=== PATIENT | female | born 1935 | race Hispanic/Latino ===

== ENCOUNTER → 2017-05-07 | Outpatient (CLI) | payer MEDICARE ==
[~2017-05-07] MED LIST: ACETAMINOP325 MG/10 PO; AMLODIPINE BESYL5 MG PO; CALCIUM 500+D1 EACH PO; CALCIUM CARBON500 MG PO; DIOVAN HCT 3201 EAC1 PO; DOXAZOSIN MESYLA2 MG PO; FLAVOXATE HCL100 MG PO; HUMULIN 70-30 V10 ML; LOVASTATIN40 MG PO; OXYBUTYNIN CHLOR5 MG PO; QUETIAPINE FUMA25 MG PO; TYLENOL WITH C1 EACH PO; ULTRAM50 MG PO; Z.0.AMARYL4 MG; Z.0.CELEXA20 MG; Z.0.PEPCID40 MG; Z.0.VYTORIN 10-401 E; Z.1.DIOVAN HCT 1601
--- NOTE | 2017-05-07 13:11 | Diagnostic Imaging Report ---
PROCEDURE:X-RAY ABDOMEN - KUB COMPARISON:Abdomen x-ray 05/15/13. INDICATIONS:CALCULUS OF KIDNEY FINDINGS: There is a non-obstructed bowel-gas pattern. The right renal shadow is lobulated in contour suggestive of atrophy or scarring. Morphology is similar to previous exam. There are 3 calculi over the lower pole shadow measuring up to 15 mm. Calcifications overlying the left renal shadow. No calcifications along expected course of the ureters. No calcifications in the pelvis. There are degenerative changes of the spine consistent with age. No focal osseous abnormalities. The lung bases are clear. CONCLUSION: Three right intrarenal calculi. Dictated by: Ange Marks M.D. on 05/07/2017 at 13:18 Electronically approved by: Ange Marks M.D. on 05/07/2017 at 13:18
--- NOTE | 2017-05-07 13:53 | Diagnostic Imaging Report ---
PROCEDURE:US RETROPERITONEAL ( KIDNEY ). COMPARISON:Renal ultrasound 09/27/12 INDICATIONS:CALCULUS OF KIDNEY TECHNIQUE: Arreguin-scale and color sonographic images of the bilateral kidneys and bladder where obtained in transverse and longitudinal planes. FINDINGS: RIGHT KIDNEY: 14.1 cm in length and is stable. The cortex is diminutive. Cysts: A cyst in the lower pole measures 20 x 25 x 37 mm. Previously, 15 x 16 x 25 mm. A cyst in the interpolar cortex measures 10 x 12 x 20 mm. Solid masses: None Stones: None Hydronephrosis: None Echogenicity: Mildly increased LEFT KIDNEY: 17 cm in length. This is likely artifactual. Previously, the left kidney measures 14 cm in length. The cortex is diminutive. Cysts: Cyst in the interpolar region measures 15 x 16 x 18 mm. Upper pole cyst measures 21 x 31 x 42 cm. Previously, the cyst measured 21 x 30 x 28 mm. Solid masses: None Stones: None Hydronephrosis: None Echogenicity: Mildly increased Bladder: Well-distended. A right renal jet is visible. The left renal jet is not visualized. CONCLUSION: 1. Atrophic kidneys with increased renal echotexture suggestive of chronic medical renal disease. 2. No evidence of renal calculus. 3. Bilateral renal cysts as described above. Dictated by: Ange Marks M.D. on 05/07/2017 at 14:01 Electronically approved by: Ange Marks M.D. on 05/07/2017 at 14:01
== END ==
LOC: RAD 10:35
PROVIDERS: ATTEND Urology
DX: N20.0 Calculus of kidney (principal); N13.30 Unspecified hydronephrosis
CPT/HCPCS: 74000; 76770

== ENCOUNTER 2017-09-01 16:31 | Inpatient (IN) | payer MEDICARE, OTHER ==
--- OUTSIDE RECORDS SUMMARY | 2017-09-01 16:35 | XMS REPORT ---
Author Author [facility] Address Unknown Phone Unavailable Care Team Providers Care Foreign Language Interpreter Name Role Phone JOHNATHAN MEANS Unavailable Unavailable Problems This patient has no known problems. Allergies, Adverse Reactions, Alerts This patient has no known allergies or adverse reactions. Medications This patient has no known medications. Results Test Description Test Time Test Comments Text Results Atomic Results Result Comments US RENAL RETROPERITONEAL COMP [place] [address] Patient Name: KATERINA KEY MR #: [id number] : 1935 Age/Sex: 82/F Req #: [id number] Adm Physician: Ordered by: JOHNATHAN MEANS MD Report #: [id number] Location: [facility] Room/Bed: Procedure: [id number] US/US RENAL RETROPERITONEAL COMP Exam Date: 05/07/17 Exam Time: 1142 REPORT STATUS: Signed PROCEDURE : US RETROPERITONEAL ( KIDNEY ). COMPARISON: Renal ultrasound 09/27/12 INDICATIONS: CALCULUS OF KIDNEY TECHNIQUE: Arreguin-scale and color sonographic images of the bilateral kidneys and bladder where obtained in transverse and longitudinal planes. FINDINGS: RIGHT KIDNEY: 14.1 cm in length and is stable. The cortex is diminutive. Cysts: A cyst in the lower pole measures 20 x 25 x 37 mm. Previously, 15 x 16 x 25 mm. A cyst in the interpolar cortex measures 10 x 12 x 20 mm. Solid masses: None Stones: None Hydronephrosis: None Echogenicity: Mildly increased LEFT KIDNEY: 17 cm in length. This is likely artifactual. Previously, the left kidney measures 14 cm in length. The cortex is diminutive. Cysts: Cyst in the interpolar region measures 15 x 16 x 18 mm. Upper pole cyst measures 21 x 31 x 42 cm. Previously, the cyst measured 21 x 30 x 28 mm. Solid masses: None Stones: None Hydronephrosis: None Echogenicity: Mildly increased Bladder: Well-distended. A right renal jet is visible. The left renal jet is not visualized. CONCLUSION: 1. Atrophic kidneys with increased renal echotexture suggestive of chronic medical renal disease. 2. No evidence of renal calculus. 3. Bilateral renal cysts as described above. Dictated by: Doris Marks M.D. on 05/07/2017 at 14:01 Electronically approved by: Doris Marks M.D. on 05/07/2017 at 14:01 Dictated By: DORIS MARKS MD 1401 Transcribed By: MORGAN on 05/07/17 1401 COPY TO: JOHNATHAN MEANS MD ABDOMEN-1VIEW (KUB) [place] [address] Patient Name: KATERINA KEY MR #: [id number] : 1935 Age/Sex: 82/F Req #: [id number] Adm Physician: Ordered by: JOHNATHAN MEANS MD Report #: [id number] Location: [facility] Room/Bed: Procedure: [id number] DX/ABDOMEN-1VIEW (KUB) Exam Date: 05/07/17 Exam Time: 1100 REPORT STATUS: Signed PROCEDURE: X-RAY ABDOMEN - KUB COMPARISON: Abdomen x-ray 05/15/13. INDICATIONS: CALCULUS OF KIDNEY FINDINGS: There is a non-obstructed bowel-gas pattern. The right renal shadow is lobulated in contour suggestive of atrophy or scarring. Morphology is similar to previous exam. There are 3 calculi over the lower pole shadow measuring up to 15 mm. Calcifications overlying the left renal shadow. No calcifications along expected course of the ureters. No calcifications in the pelvis. There are degenerative changes of the spine consistent with age. No focal osseous abnormalities. The lung bases are clear. CONCLUSION: Three right intrarenal calculi. Dictated by: Doris Marks M.D. on 05/07/2017 at 13:18 Electronically approved by: Doris Marks M.D. on 05/07/2017 at 13:18 Dictated By: DORIS MARKS MD 1318 Transcribed By: MORGAN on 05/07 1318 COPY TO: JOHNATHAN MEANS MD
[2017-09-01] MEDS ORDERED: ACETAMINOPHEN 325 MG TAB PO ONE (17:15)
[2017-09-01] MEDS ORDERED: SODIUM CHLORIDE 0.9% 1000ML 1,000 ML IV STA ×2 (17:24→18:19)
[2017-09-01] MEDS ORDERED: DIATRIZOATE MEGL/DIATRIZOA SOD 30 ML BTL PO ONE (17:26)
[2017-09-01 17:52] LABS: BASOPHILS % 0.1 % (0.0-1.0); EOSINOPHILS # (AUTO) 0.6 (0.0-0.4); EOSINOPHILS % 5.5 % (0.0-6.0); HEMATOCRIT 33.6 % (34.2-44.1); HEMOGLOBIN 11.2 g/dL (12.0-16.0); LYMPHOCYTES # (AUTO) 0.2 (1.0-3.2); LYMPHOCYTES % 1.6 % (18.0-39.1); MEAN CORPUSCULAR HEMOGLOBIN 29.1 pg (28-32); MEAN CORPUSCULAR HGB CONC 33.3 g/dL (31-35); MEAN CORPUSCULAR VOLUME 87.3 fL (81-99); MONOCYTES # (AUTO) 0.2 (0.2-0.8); MONOCYTES % 2.2 % (4.4-11.3); NEUTROPHILS # (AUTO) 9.9 (2.1-6.9); NEUTROPHILS % 90.1 % (38.7-80.0); PLATELET COUNT 183 x10e3/uL (140-360); RED BLOOD COUNT 3.85 x10e6/uL (3.6-5.1); RED CELL DISTRIBUTION WIDTH 12.8 % (11.7-14.4)
[2017-09-01 18:07] LABS: ALBUMIN 2.8 g/dL (3.5-5.0); ALBUMIN/GLOBULIN RATIO 0.8 (0.8-2.0); ANION GAP 15.8 mmol/L (8-16); CALCIUM 8.8 mg/dL (8.4-10.2); CREATININE, SERUM 2.78 mg/dL (0.57-1.11); POTASSIUM 3.8 mmol/L (3.5-5.1)
[2017-09-01 18:35] LABS: BILIRUBIN,URINE 1+ (NEGATIVE); CLARITY,URINE SL CLOUDY (CLEAR); COLOR,URINE ORANGE (YELLOW); KETONES,URINE NEGATIVE (NEGATIVE); LEUKOCYTE ESTERASE ,URINE NEGATIVE (NEGATIVE); NITRITE,URINE POSITIVE (NEGATIVE); PROTEIN,URINE DIPSTICK 1+ (NEGATIVE); URINE UROBILINOGEN 1 mg/dL (0.2 - 1)
[2017-09-01 18:39] LABS: AMORPHOUS SEDIMENT,URINE MODERATE (FEW); BACTERIA,URINE MANY /HPF; EPITHELIAL CELLS,URINE FEW /LPF; MUCUS,URINE FEW (RARE); RBC,URINE 0-5 /HPF (0-5)
--- NOTE | 2017-09-01 19:00 | Diagnostic Imaging Report ---
PROCEDURE: CHEST SINGLE (PORTABLE) COMPARISON: Patients [facility], DX, CHEST 2 VIEWS, 04/02/2016, 15:40. INDICATIONS: VOMITING, URINARY TRACT INFECTION FINDINGS: LUNGS: The lungs are diffusely hyperinflated, similar to previous exam. No evidence of mass. No interstitial thickening or infiltrate. PLEURA: No effusions or pneumothorax. HEART \T\ MEDIASTINUM: Stable cardiomegaly. The pulmonary vascular markings are normal. BONES \T\ SOFT TISSUES: Degenerative changes of the right shoulder are stable. No focal osseous lesions. CONCLUSION: Stable cardiomegaly. No vascular congestion. No acute pulmonary process. Dictated by: Ange Marks M.D. on 09/01/2017 at 19:02 Electronically approved by: Ange Marks M.D. on 09/01/2017 at 19:02
--- NOTE | 2017-09-01 19:18 | Diagnostic Imaging Report ---
PROCEDURE: CT ABDOMEN AND PELVIS WITHOUT CONTRAST COMPARISON:[facility], CT, CT ABDOMEN/PELVIS WO, 06/08/2012, 9:52. [facility], US, US RETROPERITONEAL ( KIDNEY )., 05/07/2017, 11:42. [facility], CT, CT ABDOMEN AND PELVIS WITHOUT CONTRAST, 12/25/2009, 22:01. INDICATIONS:LOWER ABD PAIN TECHNIQUE: Axial CT images through the abdomen and pelvis were obtained without intravenous contrast. Coronal and sagittal reformations were created. FINDINGS: Right kidney: The atrophic. There are multiple renal cysts measuring up to 4 cm. One cyst in the interpolar region measures 2.5 cm (previously, 1.3 cm). The renal pelvis is patulous. There is a 6 mm calculus in the interpolar region at the superior aspect of the cyst mentioned above. This calcification is stable in position. No significant perinephric inflammation. Left kidney: Atrophic. There are multiple low-attenuation cortical lesion suggestive of cysts. The largest is in the lower pole and measures 3 cm. The renal pelvis is mildly patulous. No calyceal dilatation. No intrarenal calculi Bladder/ureters: No ureteral calculus. The left ureter is mildly distended throughout its course. No significant periureteric inflammation. The bladder is collapsed around a Marrufo catheter. The tim are thickened. There is a trace amount of perivesicular inflammation. Liver: Normal attenuation. No mass Spleen: Normal attenuation. No mass Biliary: Present and contains a tiny amount of sludge near the neck. No biliary ductal dilatation Pancreas: Mild fatty atrophy. The parenchyma is somewhat dense and the proximal tail (axial image 25) without associated ductal dilatation. The distal pancreas tail is atrophic. Underlying mass cannot be entirely excluded. Adrenal Glands: No mass Vasculature: Diffuse calcifications of the aorta without aneurysmal dilatation GI: Enteric contrast present throughout. No evidence of small or large bowel dilatation or mural thickening. Diverticulosis of the sigmoid colon is present without associated inflammation. The appendix is not visualized and may be absent. Peritoneum/Retroperitoneum: No loculated fluid collections. No evidence of lymphadenopathy. Reproductive organs: The uterus is absent. There are no adnexal masses. MSK: Degenerative changes of the lower thoracic spine without compression deformity. Degenerative changes of the pubic symphysis are stable. No listhesis. No lytic or blastic lesions. Lung bases: There are prominent pericardial fat pads. There is subpleural fat deposition of the lung bases, left lung more severe than the right. There is microatelectasis of the lung bases, left more severe than the right. CONCLUSION: 1. Diffuse bladder wall thickening and mild perivesicular inflammation suggestive of cystitis. 2. Calcification in the interpolar region of the right kidney is stable in position. No hydroureteronephrosis. 3. Bilateral renal cysts. One cyst in the right kidney is larger. 4. Diverticulosis coli. No bowel obstruction or inflammation. Nonvisualization of the appendix. 5. Nonspecific focal thickening of the proximal pancreas tail without ductal dilatation. Recommend 12 month follow-up to confirm stability. 6. Minimal burden of cholelithiasis. Dictated by: Ange Marks M.D. on 09/01/2017 at 19:19 Electronically approved by: Ange Marks M.D. on 09/01/2017 at 19:19
[2017-09-01] MEDS: CEFTRIAXONE SOD 1 GM VIAL IV SCH (19:19)
[2017-09-01] MEDS: SODIUM CHLORIDE 0.9% 1000ML 1,000 ML IV SCH (19:29)
[2017-09-01 20:25] LABS: BAND NEUTROPHILS % (MANUAL) 7 %; EOSINOPHILS % (MANUAL) 4 % (0-7); LYMPHOCYTES % (MANUAL) 1 % (19-48); MONOCYTES % (MANUAL) 2 % (3.4-9.0); NEUTROPHILS % (MANUAL) 86 % (40-74)
[2017-09-01 20:27] LABS: PLATELET ESTIMATE ADEQUATE; PLATELET MORPHOLOGY COMMENT FEW LARGE; RBC MORPHOLOGY COMMENT NORMAL
[2017-09-01] MEDS ORDERED: ONDANSETRON HCL INJ 2 MG/ML VIAL IV PRN (21:45)
[2017-09-01] MEDS ORDERED: ONDANSETRON HCL 4 MG ORAL DISINTEGRATING TAB PO PRN (21:45)
[2017-09-01 21:46] VITALS: BP 120/52
[2017-09-01 23:09] VITALS: BP 120/52
[2017-09-02] VITALS (7 sets, daily range): BP systolic 100–129; BP diastolic 39–50
[2017-09-02] MEDS: ACETAMINOPHEN 325 MG TAB PO PRN ×3 (04:21→22:05)
[2017-09-02] MEDS: CEFTRIAXONE SOD 1 GM VIAL IV SCH ×2 (06:07→19:52)
[2017-09-02 06:09] LABS: BASOPHILS % 0.1 % (0.0-1.0); EOSINOPHILS # (AUTO) 0.7 (0.0-0.4); EOSINOPHILS % 7.4 % (0.0-6.0); HEMATOCRIT 30.6 % (34.2-44.1); HEMOGLOBIN 10.2 g/dL (12.0-16.0); LYMPHOCYTES # (AUTO) 0.2 (1.0-3.2); MEAN CORPUSCULAR HEMOGLOBIN 29.7 pg (28-32); MEAN CORPUSCULAR HGB CONC 33.3 g/dL (31-35); MONOCYTES # (AUTO) 0.2 (0.2-0.8); NEUTROPHILS % 87.9 % (38.7-80.0); PLATELET COUNT 159 x10e3/uL (140-360); RED BLOOD COUNT 3.44 x10e6/uL (3.6-5.1); RED CELL DISTRIBUTION WIDTH 13.1 % (11.7-14.4)
[2017-09-02 06:39] LABS: ALBUMIN 2.5 g/dL (3.5-5.0); ANION GAP 14.8 mmol/L (8-16); CALCIUM 7.6 mg/dL (8.4-10.2); CREATININE, SERUM 2.56 mg/dL (0.57-1.11); POTASSIUM 3.8 mmol/L (3.5-5.1)
--- NOTE | 2017-09-02 07:38 | History and Physical ---
PRIMARY CARE PHYSICIAN: Dr. Tucker UROLOGIST: Dr. Frank CHIEF COMPLAINT: Fever and flank pain. HISTORY OF PRESENT ILLNESS: An 82-year-old woman with a history of chronic hydronephrosis and bilateral nephrolithiasis, now developing fever at home with bilateral flank pain. Primary care doctor sent her to the hospital for management. Here she was found to be in severe sepsis and found to have pyelonephritis. She is admitted for further evaluation and management. PAST MEDICAL HISTORY: Chronic hydronephrosis, bilateral nephrolithiasis, hypertension, obesity, diabetes mellitus, type 2, depression, chronic kidney disease, stage 3, gout, anemia. PAST SURGICAL HISTORY: Urinary stent placement, status post removal at patient's request. ALLERGIES: PER ELECTRONIC MEDICAL RECORD. FAMILY HISTORY/SOCIAL HISTORY: Patient is . She has 5 children. No alcohol, illicits or cigarettes. MEDICATIONS: Per electronic medical record. REVIEW OF SYSTEMS: Denies any chest pain or shortness of breath. PHYSICAL EXAMINATION VITAL SIGNS: Have been reviewed. Temperature as high as 101.7, blood pressure as low as 100/46 and heart rate of 107. GENERAL: A tired-appearing woman resting in bed. HEENT: Anicteric. Pupils respond to light. No oral lesions. CARDIOVASCULAR: Normal S1 and S2. LUNGS: Moderate breath sounds. ABDOMEN: Soft. Large abdomen but nontender. She has bilateral flank tenderness. EXTREMITIES: No edema. SKIN: Dry. PSYCHIATRIC: Flat affect. LABS: Reviewed. MEDICATIONS: Reviewed. ASSESSMENT AND PLAN: This is an 82-year-old woman: 1. Acute pyelonephritis: Will continue with antibiotics and follow up cultures. 2. Severe sepsis: Antibiotics and intravenous fluids. 3. Acute kidney injury in the setting of chronic kidney disease, stage 3: Continue with intravenous fluids and reassess. 4. Hyperlipidemia: Continue statin. 5. Hyponatremia: Rehydrate and reassess. 6. Diabetes mellitus, type 2: Obtain hemoglobin A1c and lipid panel. 7. Flank pain: P.r.n. pain medications. 8. Obesity: Obtain lipid panel and hemoglobin A1c. 9. Prophylaxis: Sequential compression devices and proton pump inhibitor. 10. Disposition: Monitor closely. Follow up cultures. Job#: [id number] [place]
[2017-09-02 08:06] LABS: CHOL/HDL RATIO 5.2 (3.0-3.6)
[2017-09-02] MEDS: SODIUM CHLORIDE 0.9% 1000ML 1,000 ML IV SCH ×2 (08:20→22:23)
[2017-09-02] MEDS: PANTOPRAZOLE 40 MG 10ML VIAL IV SCH (08:25)
[2017-09-02] MEDS: QUETIAPINE FUMARATE 25 MG TAB PO SCH (08:25)
[2017-09-02] MEDS: OXYBUTYNIN CHLORIDE 5 MG TAB PO SCH (08:25)
[2017-09-02] MEDS ORDERED: SIMVASTATIN 20 MG TAB PO SCH (09:00)
[2017-09-02] MEDS ORDERED: DEXTROSE 50% SYRINGE 50 ML IV PRN (14:45)
[2017-09-02] MEDS ORDERED: INSULIN REGULAR, HUMAN 100 UNIT/1 ML 3ML VIAL SQ SCH (16:30)
[2017-09-02] MEDS: INSULIN REGULAR, HUMAN 100 UNIT/1 ML 3ML VIAL SQ SCH ×2 (16:50→22:15)
[2017-09-02] MEDS: SIMVASTATIN 40 MG TAB PO SCH (22:00)
[2017-09-03] VITALS (9 sets, daily range): BP systolic 97–129; BP diastolic 42–53
[2017-09-03] MEDS ORDERED: SODIUM CHLORIDE 0.9% 500ML 500 ML IV ONE (07:15)
[2017-09-03 07:20] LABS: BASOPHILS % 0.1 % (0.0-1.0); EOSINOPHILS # (AUTO) 0.6 (0.0-0.4); EOSINOPHILS % 7.4 % (0.0-6.0); HEMATOCRIT 29.6 % (34.2-44.1); HEMOGLOBIN 9.7 g/dL (12.0-16.0); LYMPHOCYTES # (AUTO) 0.5 (1.0-3.2); LYMPHOCYTES % 6.1 % (18.0-39.1); MEAN CORPUSCULAR HEMOGLOBIN 29.1 pg (28-32); MEAN CORPUSCULAR HGB CONC 32.8 g/dL (31-35); MEAN CORPUSCULAR VOLUME 88.9 fL (81-99); MONOCYTES # (AUTO) 0.3 (0.2-0.8); MONOCYTES % 4.2 % (4.4-11.3); NEUTROPHILS # (AUTO) 6.4 (2.1-6.9); NEUTROPHILS % 81.6 % (38.7-80.0); PLATELET COUNT 162 x10e3/uL (140-360); RED BLOOD COUNT 3.33 x10e6/uL (3.6-5.1); RED CELL DISTRIBUTION WIDTH 13.2 % (11.7-14.4)
[2017-09-03] MEDS: CEFTRIAXONE SOD 1 GM VIAL IV SCH ×2 (07:26→20:32)
[2017-09-03] MEDS: TRAMADOL HCL 50 MG TAB PO PRN ×2 (07:30→20:48)
--- NOTE | 2017-09-03 07:31 | Progress Note ---
DATE: September 03, 2017 TIME: 7:02 a.m. OVERNIGHT: Feeling a little better. REVIEW OF SYSTEMS: Denies any dizziness or chest pain. PHYSICAL EXAMINATION VITAL SIGNS: Reviewed. GENERAL: A tired-appearing woman resting in bed. HEENT: Anicteric. Pupils respond to light. CARDIOVASCULAR: Normal S1 and S2. LUNGS: Moderate breath sounds. ABDOMEN: Soft and nontender. Flanks are mildly tender. EXTREMITIES: No edema. SKIN: Dry. PSYCHIATRIC: Normal affect. : She has a Marrufo in place. LABS: Reviewed. MEDICATIONS: Reviewed. ASSESSMENT AND PLAN: This is an 82-year-old woman with: 1. Acute pyelonephritis: Will continue intravenous antibiotics. 2. Severe sepsis: Continue antibiotics. Give bolus fluids. 3. Hypertension: Bolus fluids now. 4. Hyperlipidemia: Continue statin. 5. Hyponatremia: Reassess and continue rehydration. Improving. Yesterday, sodium was 133. 6. Diabetes mellitus, type 2: Follow up hemoglobin A1c and lipid panel. Hemoglobin A1c is 9.5, LDL is 43 and triglycerides 198. 7. Flank pain: Improving. 8. Obesity: Follow up hemoglobin A1c and lipid panel. 9. Prophylaxis: Continue sequential compression devices and proton pump inhibitor. 10. Disposition: Discontinue Marrufo. Continue intravenous antibiotics. Give bolus of fluids now for hypertension in the setting of sepsis. Leukocytosis is resolving. Job#: [id number] [place]
[2017-09-03 07:40] LABS: CALCIUM 7.2 mg/dL (8.4-10.2); CREATININE, SERUM 3.04 mg/dL (0.57-1.11)
[2017-09-03 08:25] LABS: BAND NEUTROPHILS % (MANUAL) 2 %; EOSINOPHILS % (MANUAL) 7 % (0-7); LYMPHOCYTES % (MANUAL) 5 % (19-48); MYELOCYTES % (MANUAL) 1 % (0-0); NEUTROPHILS % (MANUAL) 84 % (40-74); PLATELET ESTIMATE ADEQUATE; PLATELET MORPHOLOGY COMMENT FEW LARGE; POIKILOCYTOSIS SLIGHT; PROMYELOCYTES % (MANUAL) 1 % (0-0); RBC MORPHOLOGY COMMENT NORMAL
[2017-09-03] MEDS: INSULIN REGULAR, HUMAN 100 UNIT/1 ML 3ML VIAL SQ SCH ×4 (08:30→22:23)
[2017-09-03] MEDS: QUETIAPINE FUMARATE 25 MG TAB PO SCH (09:22)
[2017-09-03] MEDS: OXYBUTYNIN CHLORIDE 5 MG TAB PO SCH (09:22)
[2017-09-03] MEDS: PANTOPRAZOLE 40 MG 10ML VIAL IV SCH (09:22)
[2017-09-03] MEDS: MORPHINE SULFATE 2 MG/ML SYR IV PRN ×2 (10:40→15:56)
[2017-09-03] MEDS: SODIUM CHLORIDE 0.9% 1000ML 1,000 ML IV SCH (10:53)
[2017-09-03] MEDS: ACETAMINOPHEN 325 MG TAB PO PRN (20:48)
[2017-09-03] MEDS: SIMVASTATIN 40 MG TAB PO SCH (22:22)
[2017-09-04] VITALS: BP 100/38
[2017-09-04] MEDS: SODIUM CHLORIDE 0.9% 1000ML 1,000 ML IV SCH (00:24)
[2017-09-04 04:00] VITALS: BP 98/45
[2017-09-04] MEDS: INSULIN REGULAR, HUMAN 100 UNIT/1 ML 3ML VIAL SQ SCH ×4 (07:30→21:15)
[2017-09-04] MEDS ORDERED: SODIUM BICARBONATE 8.4% IV SCH ×2 (07:45)
[2017-09-04] MEDS ORDERED: SODIUM CHLORIDE 0.45% IV SCH ×2 (07:45)
[2017-09-04 09:08] LABS: BASOPHILS % 0.1 % (0.0-1.0); EOSINOPHILS # (AUTO) 0.7 (0.0-0.4); EOSINOPHILS % 8.8 % (0.0-6.0); HEMATOCRIT 29.8 % (34.2-44.1); HEMOGLOBIN 9.5 g/dL (12.0-16.0); LYMPHOCYTES # (AUTO) 0.8 (1.0-3.2); LYMPHOCYTES % 10.1 % (18.0-39.1); MEAN CORPUSCULAR HEMOGLOBIN 28.9 pg (28-32); MEAN CORPUSCULAR HGB CONC 31.9 g/dL (31-35); MEAN CORPUSCULAR VOLUME 90.6 fL (81-99); MONOCYTES # (AUTO) 0.5 (0.2-0.8); MONOCYTES % 6.7 % (4.4-11.3); NEUTROPHILS % 73.6 % (38.7-80.0); PLATELET COUNT 177 x10e3/uL (140-360); RED BLOOD COUNT 3.29 x10e6/uL (3.6-5.1); RED CELL DISTRIBUTION WIDTH 13.4 % (11.7-14.4)
[2017-09-04 09:16] LABS: ANION GAP 12.1 mmol/L (8-16); CREATININE, SERUM 3.24 mg/dL (0.57-1.11); POTASSIUM 4.1 mmol/L (3.5-5.1)
[2017-09-04 09:19] LABS: CALCIUM 6.8 mg/dL (8.4-10.2)
[2017-09-04 09:40] LABS: BAND NEUTROPHILS % (MANUAL) 1 %; EOSINOPHILS % (MANUAL) 11 % (0-7); LYMPHOCYTES % (MANUAL) 6 % (19-48); MONOCYTES % (MANUAL) 1 % (3.4-9.0); NEUTROPHILS % (MANUAL) 81 % (40-74); PLATELET ESTIMATE ADEQUATE; PLATELET MORPHOLOGY COMMENT NORMAL; RBC MORPHOLOGY COMMENT NORMAL
[2017-09-04] MEDS ORDERED: SODIUM BICARBONATE 8.4% 50 ML in SODIUM CHLORIDE 0.45% 1,000 ML IV SCH (11:00)
[2017-09-04] MEDS: QUETIAPINE FUMARATE 25 MG TAB PO SCH (11:16)
[2017-09-04] MEDS: PANTOPRAZOLE 40 MG 10ML VIAL IV SCH (11:16)
[2017-09-04] MEDS: CEFTRIAXONE SOD 1 GM VIAL IV SCH (11:16)
[2017-09-04] MEDS: OXYBUTYNIN CHLORIDE 5 MG TAB PO SCH (11:16)
[2017-09-04] MEDS ORDERED: FUROSEMIDE INJ 10 MG/ML 2 ML VIAL IV ONE (12:00)
[2017-09-04] MEDS ORDERED: CALCIUM GLUCONATE 10% INJ 9.3 MEQ in SODIUM CHLORIDE 0.9% 100 ML 100 ML IV ONE (13:15)
[2017-09-04] MEDS ORDERED: CALCIUM CHLORIDE 9.3 MEQ in SODIUM CHLORIDE 0.9% 100 ML 100 ML IV ONE (14:00)
--- NOTE | 2017-09-04 14:12 | Progress Note ---
DATE: September 04, 2017 TIME: 12:45 p.m. OVERNIGHT: No acute events noted. REVIEW OF SYSTEMS: Patient denies chest pain, shortness of breath, vomiting or diarrhea. Slight nausea and flank pain to the right reported. PHYSICAL EXAMINATION VITAL SIGNS: Temperature 98.4, P 93, respirations 20, blood pressure 98/45, pulse ox on 2 L nasal cannula 93%. GENERAL APPEARANCE: This is a tired-appearing, elderly woman found lying in bed. HEENT: Normocephalic. PERRLA. Bilateral nares patent. Oral mucosa dry without any lesions noted. CARDIOVASCULAR: Distant S1 and S2 auscultated. Slight systolic murmur distant. Regular rate and rhythm. LUNGS: Bilateral breath sounds diminished with limited excursion. ABDOMEN: Soft, protuberant and mildly tender at bilateral flanks to palpation. EXTREMITIES: Scant edema bilateral without pitting. Moves all. SKIN: Dry. PSYCHIATRIC: Normal affect. Anxious. : Marrufo to bedside drainage with clear yellow urine noted. LABS: Counts find WBC at 8.11, hemoglobin at 9.5, hematocrit 29.8, platelets 177. Chemistries with sodium 130, K 4.1, chloride 104, carbon dioxide 18, gap 4.1. BUN and creatinine 60 and 3.24. Fingerstick glucose ranging from 228 to 259. Calcium 6.8. Albumin noted on 09/02/2017 to be 2.5. MEDICATIONS 1. Sodium bicarbonate drip at 40 mL per hour. 2. Protonix 40 IV daily. 3. Seroquel 25 mg p.o. daily. 4. Ditropan 5 mg p.o. daily. 5. Rocephin 1 g IV q.12 h. 6. Zocor 40 mg nightly. 7. Ultram 50 mg p.r.n. 8. Acetaminophen 650 mg p.r.n. 9. Morphine 2 mg q.3 h. p.r.n. IV. 10. Sliding-scale insulin. 11. P.R.N. Zofran also indicated. 12. Calcium gluconate ordered this day 2 g for low calcium findings. ASSESSMENT AND PLAN: This is an 82-year-old woman with: 1. Acute pyelonephritis. Will continue IV Rocephin. 2. Severe sepsis. Continue IV antibiotics and fluids. 3. Hypertension, resolved. Patient with lower blood pressure this day. 4. Hyperlipidemia. We will continue simvastatin. 5. Hyponatremia. Reassess in light of rehydration. Today's sodium is 130. Renal consult indicated. 6. Diabetes mellitus, type 2. Hemoglobin A1c was 9.5, triglycerides 198, LDL 43 and HDL 20. Will adjust statin as outpatient in addition to providing referral for primary care and diabetic education. 7. Flank pain, improved per patient, family and nursing staff. 8. Obesity. Calorie restriction as outpatient in addition to diabetes mellitus, type 2, as above. 9. Prophylaxis: PPI. Patient unable to tolerate SCD devices. Discussed anticoagulation risk. 10. Disposition: Renal consult for unresponsive hyponatremia and renal function findings this day. Will continue to provide support for hypotension in the setting of sepsis. Leukocytosis has resolved. Flank improving. Follow up values in a.m. Dictated by Berto Abdi NP. Job#: [id number]
[2017-09-04] MEDS: LIDOCAINE 5% PATCH TP SCH (14:32)
--- NOTE | 2017-09-04 15:57 | Diagnostic Imaging Report ---
EXAM: Renal Ultrasound INDICATION: \S\kindey faliure COMPARISON: CT abdomen pelvis 09/01/2017 TECHNIQUE: Transverse and longitudinal images of the kidneys and bladder were obtained. FINDINGS: Right Kidney: Length: 11.3 cm with thinning renal cortex (1.5 cm) Appearance: Increased echogenicity. Collecting system: Mild pelviectasis without hydronephrosis Stones: 6 mm echogenic structure in the inferior pole suggestive of a stone is unchanged. Additional 6 mm stone in the superior pole, not seen on 2010. Cyst/Mass: 2.1 x 1.5 x 1.5 cm cyst in the upper pole of the right kidney is unchanged. Previously noted large exophytic cyst in the inferior pole is not well seen on this exam. Left Kidney: Length: 10.5 cm with thinning of the renal cortex (1.4 cm). Appearance: Increased echogenicity. Collecting system: Mild pelviectasis without hydronephrosis Stones: None Cyst/Mass: 2.6 cm anechoic cyst in the upper pole is unchanged. Adjacent 1.6 cm cyst in the upper pole is also stable. Bladder: Normal IMPRESSION: Mild bilateral cortical atrophy with increased echogenic parenchyma suggestive of chronic medical renal disease. Right nephrolithiasis with 2 stones present, one of them unchanged since 2010. Bilateral renal cysts, unchanged. Additional large exophytic cyst seen in the right kidney on 2009 is no well-visualized on today's exam. Signed by: Dr. Rosetta Rubi M.D. on 09/04/2017 3:54 PM
[2017-09-04 19:15] VITALS: BP 112/40
[2017-09-04] MEDS: TRAMADOL HCL 50 MG TAB PO PRN (20:10)
[2017-09-04] MEDS ORDERED: SODIUM CHLORIDE 0.9% 1000ML 1,000 ML IV STA (21:04)
[2017-09-04] MEDS: SODIUM BICARBONATE 8.4% SYRING 150 ML in DEXTROSE 5% 1,000 ML IV SCH (21:04)
[2017-09-04] MEDS: SIMVASTATIN 40 MG TAB PO SCH (21:12)
[2017-09-04] MEDS ORDERED: VANCOMYCIN 1GM/NS 250 ML 250 ML IV ONE (21:15)
[2017-09-04] MEDS ORDERED: LEVOFLOXACIN 500MG/D5W 100ML 100 ML IV SCH (22:30)
[2017-09-04] MEDS ORDERED: MEROPENEM 500MG 500 MG in SODIUM CHLORIDE 0.9% 50ML 50 ML IV SCH (22:30)
[2017-09-04] MEDS ORDERED: MEROPENEM 500 MG VIAL ONE (22:58)
[2017-09-04] MEDS ORDERED: CEFTRIAXONE SOD 1 GM VIAL IV SCH (23:00)
[2017-09-04] MEDS ORDERED: MEROPENEM IV SCH (23:21)
[2017-09-04] MEDS ORDERED: SODIUM CHLORIDE 0.9% IV SCH (23:21)
[2017-09-04 23:40] VITALS: BP 93/39
[2017-09-05] VITALS (7 sets, daily range): BP systolic 106–141; BP diastolic 40–67
[2017-09-05] MEDS ORDERED: MEROPENEM IV SCH (07:03)
[2017-09-05] MEDS ORDERED: SODIUM CHLORIDE 0.9% IV SCH (07:03)
[2017-09-05 07:30] LABS: BASOPHILS % 0.3 % (0.0-1.0); EOSINOPHILS # (AUTO) 0.8 (0.0-0.4); EOSINOPHILS % 9.5 % (0.0-6.0); HEMATOCRIT 28.4 % (34.2-44.1); HEMOGLOBIN 9.1 g/dL (12.0-16.0); LYMPHOCYTES # (AUTO) 1.3 (1.0-3.2); LYMPHOCYTES % 15.9 % (18.0-39.1); MEAN CORPUSCULAR HEMOGLOBIN 29.2 pg (28-32); MONOCYTES # (AUTO) 0.5 (0.2-0.8); MONOCYTES % 6.2 % (4.4-11.3); NEUTROPHILS # (AUTO) 5.3 (2.1-6.9); NEUTROPHILS % 67.1 % (38.7-80.0); PLATELET COUNT 177 x10e3/uL (140-360); RED BLOOD COUNT 3.12 x10e6/uL (3.6-5.1); RED CELL DISTRIBUTION WIDTH 13.4 % (11.7-14.4)
[2017-09-05 08:07] LABS: ALBUMIN 2.2 g/dL (3.5-5.0); ALBUMIN/GLOBULIN RATIO 0.6 (0.8-2.0); ANION GAP 14.2 mmol/L (8-16); CALCIUM 7.3 mg/dL (8.4-10.2); CREATININE, SERUM 2.73 mg/dL (0.57-1.11); POTASSIUM 4.2 mmol/L (3.5-5.1)
[2017-09-05] MEDS: INSULIN REGULAR, HUMAN 100 UNIT/1 ML 3ML VIAL SQ SCH ×4 (08:14→20:53)
[2017-09-05] MEDS: PANTOPRAZOLE 40 MG 10ML VIAL IV SCH (08:15)
[2017-09-05] MEDS: LIDOCAINE 5% PATCH TP SCH (08:15)
[2017-09-05] MEDS: OXYBUTYNIN CHLORIDE 5 MG TAB PO SCH (08:15)
[2017-09-05] MEDS: SODIUM BICARBONATE 8.4% SYRING 150 ML in DEXTROSE 5% 1,000 ML IV SCH (08:34)
--- NOTE | 2017-09-05 08:41 | Diagnostic Imaging Report ---
EXAM: XR CHEST 1 VIEW DATE: 09/05/2017 7:32 AM INDICATION: Shortness of breath COMPARISON: 09/01/2017 FINDINGS: Lines and Tubes: None Heart and Mediastinum: Accentuated by lung volumes. Aortic vascular calcifications. Lungs and Pleura: Ill-defined opacities lung bases, nonspecific, stable. Bones and Soft Tissues: No acute findings. IMPRESSION: 1. Body habitus, low lung volumes, and underpenetration limit evaluation. 2. Nonspecific basilar opacities likely represent atelectasis and/or overlying soft tissues. Edema or infectious process not excluded. Signed by: Dr. Claude Krueger MD on 09/05/2017 8:38 AM
[2017-09-05] MEDS: SODIUM BICARBONATE 650 MG TAB PO SCH ×3 (10:01→20:53)
[2017-09-05] MEDS: FUROSEMIDE INJ 10 MG/ML 4 ML VIAL IV SCH ×2 (10:01→21:00)
--- NOTE | 2017-09-05 11:39 | Progress Note ---
DATE: September 05, 2017 TIME: 10:40 a.m. OVERNIGHT: No acute events noted. REVIEW OF SYSTEMS: Patient denies chest pain, shortness of breath, nausea, vomiting, or diarrhea. Reports abdominal pain is diminishing this day. PHYSICAL EXAMINATION VITAL SIGNS: T 99 tympanically, P 90, respirations 11, blood pressure 108/56, pulse ox on nasal cannula at 2 L per minute 95%. GENERAL APPEARANCE: This is a tired-appearing, elderly woman lying supine in bed. HEAD, EYES, EARS, NOSE AND THROAT: Normocephalic. PERRLA. No sinus tenderness. Oral mucosa is moist and intact. CV: Distant S1 and S2 auscultated with grade 1 to 2 pansystolic murmur. Regular rate and rhythm. LUNGS: Bilateral breath sounds moderate in all meek with limited excursion. ABDOMEN: Soft, protuberant, with resolved tenderness at bilateral flanks upon light palpation. EXTREMITIES: Upper extremities with +1 to 2 nonpitting edema, both elevated. Lower extremities with +1 nonpitting edema. Moves all. SKIN: Dry. PSYCHIATRIC: Anxious with normal affect. : Marrufo to bedside drainage with clear yellow urine. LABS: WBC this a.m. is 7.86. H and H are 9.1 and 28.4 respectively. Platelet count is 177. Chemistries this a.m. continue with Na of 130, K 4.2, chloride 103, CO2 17, gap 14.2. BUN 61 with slightly improved creatinine at 2.73. POC glucose now ranging between 259 and 175 over the last 24 hours. Calcium is 7.3. MEDICATIONS 1. Lasix 40 mg q.12 h. IV 2. P.O. sodium bicarbonate 650 mg b.i.d. 3. Protonix 40 IV daily. 4. Ditropan 5 mg p.o. daily. 5. Insulin human regular per sliding scale a.c. and nightly subcutaneous. 6. Levofloxacin q.24 h. IV. 7. Zocor 40 mg p.o. nightly. 8. Ultram 50 mg p.o. q.6 h. p.r.n. 9. Acetaminophen 650 mg p.o. q.6 h. p.r.n. 10. P.R.N. morphine sulfate 2 mg IV. 11. Lidocaine patch daily. 12. Meropenem IV times 1. 13. P.R.N. D50 and p.r.n. Zofran for nausea and vomiting. ASSESSMENT AND PLAN: This is an 82-year-old woman with: 1. Acute pyelonephritis. Will continue IV Rocephin. One-time dose of meropenem provided this day. 2. Severe sepsis. Will continue IV antibiotics. Fluid management per nephrology rec. 3. Hypertension, resolved. Continue to monitor. 4. Hyperlipidemia. Simvastatin. 5. Hyponatremia. Reassess in a.m. Sodium remains asymptomatic at 130. Appreciate renal's recommendations. 6. Diabetes mellitus, type 2. Prior hemoglobin A1c was 9.5, TG 198, LDL 43 and HDL 20. Adjust statin in outpatient setting. 7. Flank pain, resolved. 8. Obesity. Calorie restriction as outpatient in addition to DM education. 9. Prophylaxis: PPI. Patient tolerating SCDs this day. 10. Disposition: Fluid and volume management per renal's recommendations. Chest x-ray obtained this a.m. with nonspecific basilar opacities as examination was limited due to body habitus. Gentle diuresis being provided. Leukocytosis has resolved. Continue multidisciplinary care. Dictated by Berto Abdi NP. Job#: [id number]
[2017-09-05 13:04] LABS: EOSINOPHILS % (MANUAL) 12 % (0-7); LYMPHOCYTES % (MANUAL) 17 % (19-48); MONOCYTES % (MANUAL) 4 % (3.4-9.0); NEUTROPHILS % (MANUAL) 67 % (40-74)
[2017-09-05 13:05] LABS: PLATELET ESTIMATE ADEQUATE; PLATELET MORPHOLOGY COMMENT NORMAL; RBC MORPHOLOGY COMMENT NORMAL
[2017-09-05] MEDS: DIPHENHYDRAMINE HCL 25 MG CAP PO PRN (14:05)
--- NOTE | 2017-09-05 15:19 | Consultation ---
DATE OF CONSULTATION: September 04, 2017 HISTORY OF PRESENT ILLNESS: Marilu Coleman is an 82-year-old lady, currently in [facility], being treated for apparent pyelonephritis, although urine cultures are negative. She has history of right-sided nephrolithiasis since 2009, history of bilateral renal cysts. Recent ultrasound of the kidneys shows 11.3 and 10.5 cm kidneys. She is currently lying supine, in no apparent distress. Denies any nausea, vomiting, shortness of breath. Feels weak and tired. Family by bedside. She also has a history of diverticulosis. Has history of type 2 diabetes, increased BMI, prior breast surgery, history of hypertension, and anemia. ALLERGIES: TO PENICILLIN. CURRENT MEDICATIONS: Include IV normal saline, ceftriaxone, insulin, morphine, ondansetron, Ditropan, pantoprazole, Seroquel 25 mg daily, simvastatin, and tramadol. For dose schedule, please see MAR. SOCIAL HISTORY: She does not smoke or drink. FAMILY HISTORY: Significant for type 2 diabetes. PHYSICAL EXAMINATION: GENERAL: Awake, alert, lying supine, in no apparent distress. VITAL SIGNS: With a blood pressure 98/45, pulse rate 93, afebrile, oxygen saturation 93%. HEENT: Head and neck: Cornea clear. Oral mucosa dry. LUNGS: Supine exam, but relatively clear. HEART: S1, S2 audible. ABDOMEN: Soft, nontender. EXTREMITIES: Lower extremity examination showed no edema. Surgical scar is noted, right breast area. IMPRESSION AND PLAN: 1. [id number] kidney failure. Presumed pyelonephritis. Urine culture negative. 2. History of nephrolithiasis, nonobstructive. 3. Underlying nephrosclerosis, chronic kidney disease most likely with thin cortex on ultrasound. 4. 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 Plan on discontinuing existing IV fluid. Patient is relatively hypotensive. Will start IV bicarbonate drip. Will give 1 liter normal saline bolus. Etiology of [id number] kidney failure multifactorial. She has been relatively afebrile with T-max of 99.7. Urine and blood cultures negative. White count is 8.1 with a hemoglobin 9.5. Strongly suspect we are dealing with hypoalbuminemia. I will give 1 dose of vancomycin 1 g IV. She received 1 g calcium chloride. Please see further orders. Infectious disease consulted. Thank you. Job#: [id number]
[2017-09-05] MEDS ORDERED: NYSTATIN 15 GM POWDER UD BTL TOP PRN (17:00)
[2017-09-05] MEDS ORDERED: SODIUM BICARBONATE 650 MG TAB PO SCH (17:00)
--- NOTE | 2017-09-05 17:42 | Consultation ---
DATE OF CONSULTATION: September 05, 2017 REASON FOR CONSULTATION: Pyelonephritis and UTI. HISTORY OF PRESENT ILLNESS: Thank you so much to see this patient. This patient is a very pleasant 82-year-old [place]Citizen [place] female with history of obesity, history of diabetes mellitus, and history of hypertension. The patient comes into the hospital because she is not feeling well, fever, and chills. She had been sick for 3-4 days before she came here. She had some right lower quadrant pain and little bit nauseous. The patient has seen Dr. Tucker as an outpatient. The patient comes in. She was evaluated. She was found to have an xcace-fmnf-pozjfos kidney disease. She was septic, so patient was started on IV antibiotic. Infectious disease was consulted yesterday on an urgent basis. When I received the consult, reviewed her chart remotely and patient was started on meropenem. Patient today is telling me she is feeling better. Her son is at the bedside. She has no new complaints. Patient is currently lying in bed comfortably in ICU. This patient originally came with fever and chills. She was seen by Dr. Frank. PAST MEDICAL HISTORY: Significant for chronic hydronephrosis, bilateral nephrolithiasis, hypertension, obesity, diabetes mellitus type 2, depression, chronic kidney disease stage III, gout, and anemia. PAST SURGICAL HISTORY: Urinary stent placement and removal of the stent per patient's request. ALLERGIES: NKA. SOCIAL HISTORY: There is no smoking, drug abuse, or alcohol abuse. FAMILY HISTORY: Significant for diabetes mellitus and hypertension. REVIEW OF SYSTEMS: At present time; HEENT: There is no headache, visual changes, or hearing changes. GI: There is no nausea, no vomiting, and no diarrhea. CARDIAC: There is no arrhythmia. NEURO: No seizure activity. SKIN: There is no rash. JOINT: She has no acute complaint at the present time. LABORATORY DATA: Reviewed. Patient was admitted on September 01 and her white count was 10.9 and hemoglobin 11.2. Her sodium 130, potassium 4.2, and her creatinine 2.73. Blood cultures are negative so far. Her urine cultures showed no growth. Her CT of abdomen and pelvis, which was done on September 01, 2017 showed diffuse bladder wall thickening, mild perivascular inflammation suggestive of cystitis, calcification of interpolar region of the right kidney stable, no hydronephrosis, and bilateral renal cysts. One cyst in the right kidney is larger. Diverticulosis was noted. PHYSICAL EXAMINATION GENERAL: She is currently alert and oriented, does not seem to be in acute distress. VITALS: Stable. Temperature 99; when she first came, it was 101.7. HEENT: She is not icteric. NECK: Supple. CHEST: Clear bilateral. COR: S1 and S2. ABDOMEN: Soft and obese. IMPRESSION AND PLAN: Fever and sepsis on admission, probably pyelonephritis. Cultures are negative so far. She was on Rocephin without significant improvement. We will put her on meropenem and discontinue Rocephin. We will also add Levaquin for the time being. We will adjust for kidney function. She received a dose of vancomycin. Agree with IV fluid and supportive care. I think the patient is responding to the current choice for me with meropenem for the time being and we will follow with you. Job#: [id number] VAS
[2017-09-05] MEDS: SIMVASTATIN 40 MG TAB PO SCH (21:00)
[2017-09-05] MEDS ORDERED: MEROPENEM 500MG 500 MG in SODIUM CHLORIDE 0.9% 50ML 50 ML IV SCH (23:00)
[2017-09-06] VITALS (8 sets, daily range): BP systolic 132–146; BP diastolic 51–65
[2017-09-06 07:20] LABS: ANION GAP 13.6 mmol/L (8-16); CALCIUM 7.7 mg/dL (8.4-10.2); CREATININE, SERUM 2.24 mg/dL (0.57-1.11); POTASSIUM 3.6 mmol/L (3.5-5.1)
[2017-09-06] MEDS: INSULIN REGULAR, HUMAN 100 UNIT/1 ML 3ML VIAL SQ SCH ×4 (07:30→20:54)
--- NOTE | 2017-09-06 07:51 | Progress Note ---
DATE: September 06, 2017 TIME: 7:24 a.m. OVERNIGHT: Blood glucose was elevated. REVIEW OF SYSTEMS: Denies any dizziness. VITAL SIGNS: Reviewed. PHYSICAL EXAMINATION GENERAL APPEARANCE: A tired-appearing woman resting in bed. HEENT: Anicteric. CARDIOVASCULAR: Normal S1 and S2. LUNGS: Moderate breath sounds reduced at the bases. ABDOMEN: Soft, nontender. EXTREMITIES: Trace edema. SKIN: Dry. PSYCHIATRIC: Flat affect. LABS: Reviewed. MEDICATIONS: Reviewed. ASSESSMENT: An 82-year-old woman. 1. Acute pyelonephritis. 2. Hypertension. 3. Acute kidney injury. 4. Hyperlipidemia. 5. Hyponatremia. 6. Diabetes mellitus, type 2. Hemoglobin A1c 9.5, LDL 43, triglycerides 198. 7. Obesity. 8. Fever and sepsis present on admission. PLAN 1. Continue meropenem and Levaquin as started by infectious disease. 2. Continue monitoring renal function, defer to nephrology. 3. Start insulin regimen for elevated blood glucose. 4. I's and O's are 1040/4150. 5. The patient remains on bicarbonate p.o. q.12 h. Job#: [id number]
[2017-09-06] MEDS: PANTOPRAZOLE 40 MG 10ML VIAL IV SCH ×2 (09:00→09:53)
[2017-09-06] MEDS ORDERED: INSULIN DETEMIR 100 UNIT/ML PEN SQ SCH (09:00)
[2017-09-06] MEDS: FUROSEMIDE INJ 10 MG/ML 4 ML VIAL IV SCH ×2 (09:00→09:53)
[2017-09-06] MEDS: OXYBUTYNIN CHLORIDE 5 MG TAB PO SCH (09:53)
[2017-09-06] MEDS: LIDOCAINE 5% PATCH TP SCH (09:53)
[2017-09-06] MEDS: METRONIDAZOLE 500MG/NS 100ML 100 ML IV SCH ×2 (15:30→21:57)
[2017-09-06] MEDS: DIPHENHYDRAMINE HCL 25 MG CAP PO PRN ×2 (15:44→22:25)
[2017-09-06] MEDS: SODIUM BICARBONATE 650 MG TAB PO SCH (17:07)
[2017-09-06] MEDS: SIMVASTATIN 40 MG TAB PO SCH (20:31)
[2017-09-06] MEDS: TRAMADOL HCL 50 MG TAB PO PRN (22:26)
[2017-09-06] MEDS ORDERED: LEVOFLOXACIN 500MG/D5W 100ML 100 ML IV SCH (23:00)
[2017-09-07] VITALS (7 sets, daily range): BP systolic 106–151; BP diastolic 50–75
[2017-09-07] MEDS: METRONIDAZOLE 500MG/NS 100ML 100 ML IV SCH ×3 (05:28→21:31)
--- NOTE | 2017-09-07 07:17 | Progress Note ---
DATE: September 07, 2017 TIME: 6:42 a.m. OVERNIGHT: No events. REVIEW OF SYSTEMS: Denies any chest pain. PHYSICAL EXAMINATION VITAL SIGNS: Reviewed. GENERAL: A tired-appearing woman resting in bed. HEENT: Anicteric. CARDIOVASCULAR: Normal S1 and S2. LUNGS: Reduced breath sounds. ABDOMEN: Soft, nontender and nondistended. EXTREMITIES: No edema. SKIN: Dry. PSYCHIATRIC: Flat affect. LABS: Reviewed. MEDICATIONS: Reviewed. ASSESSMENT: An 82-year-old woman with: 1. Acute pyelonephritis. 2. Hypertension. 3. Acute kidney injury. 4. Hyperlipidemia. 5. Hyponatremia. 6. Diabetes mellitus, type 2: Hemoglobin A1c 9.5, LDL 43 and triglycerides 198. 7. Obesity. 8. Fever and sepsis: Present on admission. 9. Physical deconditioning. PLAN 1. Continue meropenem and Levaquin. 2. Continue monitoring renal function. 3. Increase insulin to 10 units daily. 4. Continue I's and O's. 5. Discharge planning to skilled facility for physical therapy and further monitoring. Job#: [id number] GUSTAVO
[2017-09-07 07:22] LABS: ALBUMIN 2.3 g/dL (3.5-5.0); ALBUMIN/GLOBULIN RATIO 0.7 (0.8-2.0); ANION GAP 12.4 mmol/L (8-16); CALCIUM 7.6 mg/dL (8.4-10.2); CREATININE, SERUM 1.69 mg/dL (0.57-1.11); POTASSIUM 3.4 mmol/L (3.5-5.1)
[2017-09-07] MEDS: PANTOPRAZOLE 40 MG 10ML VIAL IV SCH (08:50)
[2017-09-07] MEDS: LIDOCAINE 5% PATCH TP SCH (08:50)
[2017-09-07] MEDS: SODIUM BICARBONATE 650 MG TAB PO SCH ×2 (08:50→17:43)
[2017-09-07] MEDS: INSULIN DETEMIR 100 UNIT/ML PEN SQ SCH (08:50)
[2017-09-07] MEDS: INSULIN REGULAR, HUMAN 100 UNIT/1 ML 3ML VIAL SQ SCH ×4 (08:50→21:29)
[2017-09-07] MEDS: OXYBUTYNIN CHLORIDE 5 MG TAB PO SCH (08:50)
--- NOTE | 2017-09-07 10:36 | Diagnostic Imaging Report ---
PROCEDURE:ABDOMEN-1VIEW (KUB) TECHNIQUE:Supine AP abdomen totaling 2 radiographs INDICATION:Distended abdomen COMPARISON:[facility], CT, CT ABDOMEN/PELVIS WO, 09/01/2017, 18:47. FINDINGS: Gaseous distention of the transverse colon. Gas is present in the rectum. No evidence of ascites. No irregular calcifications. Grossly intact skeleton. Study limited by body habitus resulting in underpenetration. CONCLUSION: Gaseous distention of the colon without gross evidence of obstruction. Dictated by: Cyril Urbano M.D. on 09/07/2017 at 10:38 Electronically approved by: Cyril Urbano M.D. on 09/07/2017 at 10:38
[2017-09-07] MEDS ORDERED: POTASSIUM CHLORIDE 20MEQ/100ML 200 ML IV ONE (11:00)
[2017-09-07] MEDS ORDERED: SIMETHICONE 80 MG CHEW PO PRN (12:00)
[2017-09-07] MEDS: FUROSEMIDE INJ 10 MG/ML 4 ML VIAL IV SCH ×2 (13:00→21:31)
[2017-09-07 14:30] LABS: TOTAL PROTEIN, URINE < 6.8 mg/dL (1-14)
[2017-09-07 14:33] LABS: CREATININE,URINE RANDOM 10.87 mg/dL (47-110)
[2017-09-07] MEDS: TRAMADOL HCL 50 MG TAB PO PRN (18:35)
[2017-09-07] MEDS: SIMVASTATIN 40 MG TAB PO SCH (21:28)
[2017-09-07] MEDS: DIPHENHYDRAMINE HCL 25 MG CAP PO PRN (21:41)
[2017-09-08] VITALS (9 sets, daily range): BP systolic 120–141; BP diastolic 56–65
[2017-09-08] MEDS: FUROSEMIDE INJ 10 MG/ML 4 ML VIAL IV SCH (06:09)
[2017-09-08] MEDS: METRONIDAZOLE 500MG/NS 100ML 100 ML IV SCH ×3 (06:09→21:49)
[2017-09-08] MEDS ORDERED: FUROSEMIDE40 MG PO (06:52)
[2017-09-08] MEDS ORDERED: Insulin Detemir SQ (06:52)
[2017-09-08] MEDS ORDERED: SIMETHICONE80 MG PO (06:52)
[2017-09-08] MEDS ORDERED: SODIUM BICARBO650 MG PO (06:52)
--- NOTE | 2017-09-08 07:12 | Diagnostic Imaging Report ---
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 Jurado Pre-operative diagnosis: Sepsis, poor IV access Post-operative diagnosis: Sepsis Conscious Sedation: None The patient's heart rate and pulse oximetry were continuously monitored by the interventional radiology nurse. Blood pressure was monitored at 5 minute intervals. Additional Medications: Lidocaine 1% for local anesthesia Fluoroscopy time: 0.2 minutes Frontal Air Kerma: Not recorded due to equipment error Contrast used: None Estimated blood loss: Less than 5 cc Specimens: None Implants: 7 Bulgarian, 16 cm triple-lumen central venous catheter Blood products administered: None Condition at completion of procedure: Stable Disposition: Returned to floor DISCUSSION: Informed consent was obtained and documented in the medical record after discussion of risks and benefits. The patient was placed in the supine position on the fluoroscopic table. Preliminary sonographic evaluation confirmed patency of the right internal jugular vein, evidenced by compressibility. The right cervical region was prepped and draped in the standard sterile fashion. 1% lidocaine was infiltrated into the skin and subcutaneous tissues for local anesthesia. Then under continuous sonographic guidance, an 18-gauge singlewall needle was used to access the right internal jugular vein. A permanent sonographic image was stored in the medical record. A 0.0 3 5-in. J-wire was advanced into the inferior vena cava under fluoroscopic guidance. The needle was removed over the wire and the tract was dilated. Then a 7 Bulgarian 16 cm triple-lumen central venous catheter was advanced over the wire to full depth. The wire was removed and the catheter tip was positioned at the superior cavoatrial junction. Each lumen showed adequate bidirectional flow and was flushed with sterile saline. The catheter was secured to the skin with monofilament nylon suture and a sterile dressing was applied. The patient tolerated the procedure well without immediate complication. FINDINGS: Patent right internal jugular vein IMPRESSION: Successful placement of a 7 Bulgarian, 16 cm triple-lumen central venous catheter by a right internal jugular approach. Signed by: Dr. Justin Jurado M.D. on 09/08/2017 7:09 AM
--- NOTE | 2017-09-08 07:18 | Discharge Summary ---
PRINCIPAL DIAGNOSES 1. Acute pyelonephritis. 2. Hypertension. 3. Acute kidney injury. 4. Hyperlipidemia. 5. Hyponatremia. 6. Diabetes mellitus, type 2. Hemoglobin A1c 9.5, LDL 43 and triglycerides 198. 7. Obesity. 8. Fever and sepsis present on admission. 9. Physical deconditioning. SECONDARY DIAGNOSIS: Hypertension. CHIEF COMPLAINT: Fever and flank pain. HISTORY: An 82-year-old woman with flank pain. Refer to the H and P for further details. HOSPITAL COURSE: The patient developed fever and flank pain. She was found to have acute pyelonephritis. She was treated with IV antibiotics. All cultures remained negative. She had acute kidney injury, which has improved with IV fluids. She had diabetes mellitus, type 2. Hemoglobin A1c 9.5, LDL 43 and triglycerides 198. Obesity and needs caloric restriction. The patient had fever and sepsis present on admission. She had physical deconditioning and received physical therapy. She is currently on meropenem and Levaquin IV. She will be transitioned to the skilled facility for continued management. Renal function with GFR has improved from 16 to 29. Renal ultrasound did show chronic medical renal disease. She likely has chronic kidney disease, stage 2 or stage 3. DISCHARGE MEDICATIONS: Per electronic medical record. FOLLOWUP: Primary care doctor in 1 week. Follow up with urology outpatient in 2 weeks. DISCHARGE CONDITION: Stable and improved. DISCHARGE LOCATION: Skilled facility. RADHAMES ANN MD Job#: [id number] [facility]
[2017-09-08 07:41] LABS: ALBUMIN 2.5 g/dL (3.5-5.0); ALBUMIN/GLOBULIN RATIO 0.7 (0.8-2.0); ANION GAP 11.5 mmol/L (8-16); CALCIUM 7.7 mg/dL (8.4-10.2); CREATININE, SERUM 1.63 mg/dL (0.57-1.11); MAGNESIUM 1.4 MG/DL (1.3-2.1); POTASSIUM 3.5 mmol/L (3.5-5.1)
[2017-09-08] MEDS: SODIUM BICARBONATE 650 MG TAB PO SCH ×2 (08:29→17:30)
[2017-09-08] MEDS: OXYBUTYNIN CHLORIDE 5 MG TAB PO SCH (08:29)
[2017-09-08] MEDS: PANTOPRAZOLE 40 MG 10ML VIAL IV SCH (08:29)
[2017-09-08] MEDS: LIDOCAINE 5% PATCH TP SCH (08:29)
[2017-09-08] MEDS: INSULIN REGULAR, HUMAN 100 UNIT/1 ML 3ML VIAL SQ SCH ×4 (08:29→20:49)
[2017-09-08] MEDS: INSULIN DETEMIR 100 UNIT/ML PEN SQ SCH (08:29)
[2017-09-08] MEDS ORDERED: MEROPENEM 500MG 500 MG in SODIUM CHLORIDE 0.9% 50ML 50 ML IV SCH (12:00)
[2017-09-08] MEDS: MEROPENEM 500 MG VIAL IV SCH (12:15)
[2017-09-08] MEDS ORDERED: POTASSIUM CHLORIDE 20 MEQ TAB CR PO STA (12:54)
[2017-09-08] MEDS: CARVEDILOL 12.5 MG TAB PO SCH (17:29)
[2017-09-08] MEDS: FUROSEMIDE 40 MG TAB PO SCH (17:31)
[2017-09-08] MEDS: SIMVASTATIN 40 MG TAB PO SCH (20:49)
[2017-09-08] MEDS: TRAMADOL HCL 50 MG TAB PO PRN ×2 (20:49→21:55)
[2017-09-09] VITALS: BP 129/60
[2017-09-09 04:00] VITALS: BP 148/65
[2017-09-09] MEDS: METRONIDAZOLE 500MG/NS 100ML 100 ML IV SCH ×2 (06:06→14:24)
[2017-09-09] MEDS: FUROSEMIDE 40 MG TAB PO SCH (06:06)
[2017-09-09 06:51] LABS: ALBUMIN 2.5 g/dL (3.5-5.0); ALBUMIN/GLOBULIN RATIO 0.8 (0.8-2.0); ANION GAP 11.9 mmol/L (8-16); CALCIUM 7.9 mg/dL (8.4-10.2); CREATININE, SERUM 1.65 mg/dL (0.57-1.11); POTASSIUM 3.9 mmol/L (3.5-5.1)
[2017-09-09] MEDS ORDERED: PANTOPRAZOLE SOD 40 MG TABEC PO SCH (07:30)
[2017-09-09 08:06] VITALS: BP 120/55
[2017-09-09] MEDS: CARVEDILOL 12.5 MG TAB PO SCH (08:43)
[2017-09-09] MEDS: LIDOCAINE 5% PATCH TP SCH (08:43)
[2017-09-09] MEDS: SODIUM BICARBONATE 650 MG TAB PO SCH (08:43)
[2017-09-09] MEDS: INSULIN DETEMIR 100 UNIT/ML PEN SQ SCH (08:43)
[2017-09-09] MEDS: OXYBUTYNIN CHLORIDE 5 MG TAB PO SCH (08:43)
[2017-09-09] MEDS: INSULIN REGULAR, HUMAN 100 UNIT/1 ML 3ML VIAL SQ SCH ×2 (08:44→12:19)
[2017-09-09 09:25] VITALS: BP 120/55
[2017-09-09 12:14] VITALS: BP 131/59
[2017-09-09] MEDS: MEROPENEM 500 MG VIAL IV SCH (12:19)
[2017-09-09 16:14] VITALS: BP 154/69
--- NOTE | 2017-09-11 08:18 | Discharge Summary ---
ADDENDUM: Patient remained in the hospital for an additional day. No events. Patient was subsequently transitioned out of the hospital. For further details, please refer to my discharge summary dated September 08, 2017. RADHAMES ANN MD Job#: [id number] [facility]
== END 2017-09-09 16:31 | DRG 872 ==
LOC: ER 16:31 → ERHOLD 19:17 → IMCU 20:50 → MED/SURG 09-06 12:41
PROVIDERS: ADMIT Internal Medicine; ATTEND Internal Medicine
PROC: 02HV33Z Insertion of Infusion Device into Superior Vena Cava, Percutaneous Approach (ICD-10-PCS; principal; 2017-09-06)
PROC: B5181ZA Fluoroscopy of Superior Vena Cava using Low Osmolar Contrast, Guidance (ICD-10-PCS; 2017-09-06)
DX: A41.9 Sepsis, unspecified organism (principal); N17.9 Acute kidney failure, unspecified; E87.2 Acidosis; E87.1 Hypo-osmolality and hyponatremia; N25.89 Other disorders resulting from impaired renal tubular function; N20.0 Calculus of kidney; Z87.442 Personal history of urinary calculi; E88.09 Other disorders of plasma-protein metabolism, not elsewhere classified; E66.9 Obesity, unspecified; E78.5 Hyperlipidemia, unspecified; R65.20 Severe sepsis without septic shock; R32 Unspecified urinary incontinence; D64.9 Anemia, unspecified; I12.9 Hypertensive chronic kidney disease with stage 1 through stage 4 chronic kidney disease, or unspecified chronic kidney disease; E11.22 Type 2 diabetes mellitus with diabetic chronic kidney disease; N18.3 Chronic kidney disease, stage 3 (moderate)
CPT/HCPCS: 36415; 36556; 51700; 71045; 74018; 74176; 74470; 76770; 76937; 77001; 80048; 80053; 80061; 81001; 82570; 82948; 83036; 83605; 83735; 84156; 85025; 87040; 87086; 87493; 96367; 96372; 96374; 96375; 96376; 99285; C1751; J0610; J0696; J1940; J1956; J2185; J2270; J3370; J3480; J7030; J7040; J7070